=== PATIENT | male | born 1980 | race African-American/Black ===

== ENCOUNTER 2017-01-04 22:35 | Emergency (ER) | payer OTHER ==
[~2017-01-04] VITALS: Ht 177.8 cm; Wt 83.3 kg
[~2017-01-04 22:35] MED LIST: KEPPRA500 MG PO
[2017-01-04 22:57] LABS: POINT-OF-CARE METER ID UU14100415
[2017-01-04 23:28] LABS: EOSINOPHIL (%) 4.2 % (0-5); EOSINOPHIL COUNT 0.2 K/uL (0-0.3); HEMATOCRIT 37.1 % (38.0-50.0); IMMATURE GRANULOCYTE (%) 0.2 % (0.0-0.7); INSTRUMENT ABS NEUTROPHIL CT 2.4 K/uL; LYMPHOCYTE COUNT 2.6 K/uL (1.0-2.8); MCH 26.4 PG (29.0-34.0); MCHC 32.6 G/DL (30.0-36.0); MCV 80.8 FL (86-99); MEAN PLAT.VOLUME 9.4 uM^3 (9.0-12.4); MONOCYTE (%) 6.9 % (3-12); MONOCYTE COUNT 0.4 K/uL (0-0.8); NEUTROPHIL (%) 42.5 % (45-76); NEUTROPHIL COUNT 2.4 K/uL (1.8-6.4); PLATELET COUNT 263 K/uL (156-360); RBC DIS.WIDTH-CV 12.7 % (11.8-14.6); RBC DIS.WIDTH-SD 37.2 % (39-53); RED BLOOD COUNT 4.59 M/uL (4.00-5.50); WHITE BLOOD COUNT 5.7 K/uL (4.1-10.2)
[2017-01-04 23:36] LABS: CHLORIDE 105 mEq/L (99-109); POTASSIUM 3.8 mEq/L (3.7-5.4); SODIUM 141 mEq/L (136-147)
[2017-01-04 23:37] LABS: GLUCOSE 132 mg/dL (70-99)
[2017-01-04 23:39] LABS: ANION GAP 10 MEQ/L (2-14)
[2017-01-04 23:41] LABS: GFR ESTIMATE (CALCULATED) > 59 mL/min/
[2017-01-04 23:42] LABS: UREA NITROGEN (BUN) 18 mg/dL (9-23)
[2017-01-04 23:44] LABS: CREATINE KINASE 341 IU/L (1-294)
[2017-01-05] MEDS ORDERED: KEPPRA500 MG PO (03:08)
[2017-01-05 03:33] VITALS: BP 103/64
== END 2017-01-05 03:34 | disposition home or self-care (01) ==
LOC: EME → EDBD 22:35 → EME 22:35
PROVIDERS: Emergency Medicine
DX: G40.909 Epilepsy, unspecified, not intractable, without status epilepticus (principal); T42.6X6A Underdosing of other antiepileptic and sedative-hypnotic drugs, initial encounter; Z91.128 Patient's intentional underdosing of medication regimen for other reason
CPT/HCPCS: 70450; 80048; 82550; 82948; 85025; 99281; 99284; J1953; J2060; J7030; J7050